=== PATIENT | female | born 1965 | race Two or more races ===

== ENCOUNTER → 2025-06-20 | Outpatient (CLI) | payer MEDICAID, SELFPAY ==
--- NOTE | 2025-06-20 15:30 | XR_ITS ---
Examination: Retroperitoneal ultrasound, complete Technique: Multiple high resolution grayscale images of the retroperitoneum obtained, including kidneys and bladder. Exam date and time:June 20, 2025 1503 hours INDICATIONS: Recurrent urinary tract infections beginning several months ago. FINDINGS: Right kidney 10.0 cm cortex 1.1 cm Left kidney 12.1 cm cortex 2.4 cm Mild to moderate bilateral renal parenchymal scar formation No bladder mass or bladder calculi. Bladder prevoid by 130 cc IMPRESSION: Mild to moderate bilateral renal parenchymal scar formation.
== END | disposition home or self-care (01) ==
LOC: CDIM 14:48
PROVIDERS: PCP Physician Assistant; Referring Provider Surgery; Visit Provider Surgery
DX: N28.89 Other specified disorders of kidney and ureter (principal)
CPT/HCPCS: 76770